=== PATIENT | male | born 1965 | race Hispanic/Latino ===

== ENCOUNTER 2017-10-20 22:50 | Observation (INO) | payer MEDICARE, OTHER ==
[~2017-10-20] VITALS: Ht 165.1 cm; Wt 106.8 kg
[2017-10-20] MEDS ORDERED: PANTOPRAZOLE 40 MG 10ML VIAL IV STA (23:09)
[2017-10-20] MEDS ORDERED: NITROGLYCERIN 0.4 MG SUBL SL PRN (23:15)
[2017-10-20] MEDS ORDERED: ASPIRIN 325 MG TAB PO ONE (23:15)
[2017-10-20] MEDS ORDERED: LORAZEPAM 1 MG TAB PO ONE (23:45)
[2017-10-21] VITALS (10 sets, daily range): BP systolic 115–182; BP diastolic 62–84
[2017-10-21] MEDS ORDERED: MORPHINE SULFATE INJ 4 MG/ML INJ IV STA (00:31)
[2017-10-21] MEDS ORDERED: FAMOTIDINE 20 MG TAB PO SCH (00:45)
[2017-10-21] MEDS ORDERED: PROMETHAZINE 12.5MG/ NACL 0.9% 12.5 MG/50 ML BAG IV PRN (00:45)
[2017-10-21] MEDS ORDERED: MORPHINE SULFATE 2 MG/ML SYR IV PRN (00:45)
[2017-10-21] MEDS ORDERED: SODIUM CHLORIDE FLUSH 10 ML SYR INJ PRN (00:45)
[2017-10-21] MEDS ORDERED: DEXTROSE 50% SYRINGE 50 ML IV PRN ×2 (01:15→14:00)
[2017-10-21] MEDS ORDERED: LASIX40 MG PO (02:01)
[2017-10-21] MEDS ORDERED: MORPHINE SULFAT30 M2 PO (02:01)
[2017-10-21] MEDS ORDERED: PLAVIX75 MG PO (02:01)
[2017-10-21] MEDS ORDERED: PROCARDIA XL30 MG (02:01)
[2017-10-21] MEDS ORDERED: LORAZEPAM1 MG PO (02:01)
[2017-10-21] MEDS ORDERED: METOPROLOL SUCC50 MG PO (02:01)
[2017-10-21] MEDS ORDERED: LORAZEPAM 1 MG TAB PO PRN (02:15)
[2017-10-21] MEDS: NITROGLYCERIN 0.4 MG SUBL SL PRN ×3 (03:17→03:27)
[2017-10-21 05:51] LABS: CREATINE KINASE MB 1.7 ng/mL (0-5.0)
[2017-10-21] MEDS: NIFEDIPINE CR 30 MG TAB PO SCH (09:00)
[2017-10-21] MEDS: FUROSEMIDE 40 MG TAB PO SCH (09:00)
[2017-10-21] MEDS: CLOPIDOGREL BISULFATE 75 MG TAB PO SCH (09:00)
[2017-10-21] MEDS ORDERED: MORPHINE SULFATE 30 MG TAB ER PO SCH (09:00)
[2017-10-21] MEDS: ASPIRIN 81 MG ENTERIC COATED PO SCH (09:00)
[2017-10-21] MEDS: FAMOTIDINE 20 MG TAB PO SCH ×2 (09:00→21:28)
[2017-10-21] MEDS: METOPROLOL SUCCINATE 50 MG TAB XL PO SCH (09:00)
[2017-10-21] MEDS: INSULIN REGULAR, HUMAN 100 UNIT/1 ML 3ML VIAL SQ SCH ×2 (11:16→11:30)
[2017-10-21 13:18] LABS: BASOPHILS % 0.5 % (0.0-1.0); EOSINOPHILS # (AUTO) 0.3 (0.0-0.4); EOSINOPHILS % 3.8 % (0.0-6.0); HEMATOCRIT 33.7 % (38.2-49.6); HEMOGLOBIN 11.2 g/dL (14.0-18.0); LYMPHOCYTES # (AUTO) 1.7 (1.0-3.2); LYMPHOCYTES % 20.1 % (18.0-39.1); MEAN CORPUSCULAR HEMOGLOBIN 28.9 pg (28-32); MEAN CORPUSCULAR HGB CONC 33.2 g/dL (31-35); MEAN CORPUSCULAR VOLUME 87.1 fL (81-99); MONOCYTES # (AUTO) 1.1 (0.2-0.8); MONOCYTES % 13.2 % (4.4-11.3); NEUTROPHILS # (AUTO) 5.1 (2.1-6.9); PLATELET COUNT 196 x10e3/uL (140-360); RED BLOOD COUNT 3.87 x10e6/uL (4.3-5.7); RED CELL DISTRIBUTION WIDTH 14.2 % (11.7-14.4)
[2017-10-21 13:33] LABS: CREATINE KINASE MB 1.6 ng/mL (0-5.0)
[2017-10-21 13:51] LABS: ALBUMIN/GLOBULIN RATIO 0.8 (0.8-2.0); ANION GAP 14.7 mmol/L (8-16); CALCIUM 8.5 mg/dL (8.4-10.2); CREATININE, SERUM 4.43 mg/dL (0.72-1.25); POTASSIUM 3.7 mmol/L (3.5-5.1)
[2017-10-21] MEDS: INSULIN LISPRO 100 UNIT/1 ML 3ML VIAL SQ SCH ×3 (16:30→20:51)
[2017-10-21] MEDS: MORPHINE SULFATE 15MG TAB CR PO SCH (17:00)
--- NOTE | 2017-10-21 18:19 | History and Physical ---
CHIEF COMPLAINT: Atypical chest pain, abnormal EKG, shortness of breath. HPI: This is a 52-year-old male with a past medical history of coronary artery disease, hypertension, diabetes mellitus, possible renal failure. He was in his usual state of health until the patient came to [facility] ER with atypical chest pain. The pain started on the right side and radiated to the left side, right upper quadrant pain also. Mild shortness of breath. No backache. No burning urination. No diarrhea. No constipation. No seizures. No cough. No hematemesis or melena. No abnormal movement. ALLERGIES: NO KNOWN DRUG ALLERGIES. PAST MEDICAL HISTORY 1. Chronic low back pain. 2. Coronary artery disease. 3. Hypertension. 4. Hyperlipidemia. 5. Chronic renal failure. PAST SURGICAL HISTORY 1. History of spinal stimulator. 2. Coronary artery bypass graft. SOCIAL HISTORY: The patient is and lives with his . HABITS: Denies smoking. Denies alcohol use. Denies illicit drug use. FAMILY HISTORY: Father and mother both have coronary artery disease and coronary artery bypass graft. MEDICATIONS: List attached. REVIEW OF SYSTEMS GENERAL: Denies fatigue and weakness. HEENT: No diplopia. No blurring of vision. CARDIOPULMONARY: Had chest pain and shortness of breath. ALIMENTARY SYSTEM: No nausea. No vomiting. No diarrhea. GENITOURINARY: Denies dysuria or hematuria. MUSCULOSKELETAL: No joint pain. Has back pain. NEURO: No focal weakness. No seizure. PHYSICAL EXAMINATION GENERAL: This is a 52-year-old male who is alert and oriented times 3, in no gross distress. VITAL SIGNS: Temperature 96.2, pulse 58, respiratory rate 18, blood pressure 144/78. HEENT: Atraumatic and normocephalic. Pupils are bilaterally equal to light. The extraocular movements are intact. NECK: Supple. No JVD. No carotid bruit. LUNGS: Clear to auscultation and percussion bilaterally. No added sound. HEART: S1 and S2. Regular rate and rhythm. No S3, S4 or murmur. ABDOMEN: Soft. Nontender. No guarding. No rigidity. EXTREMITIES: No pedal edema. Peripheral pulses +1. ALUMINUM HYDROXIDE PROCESS OPERATOR: Grossly nonfocal. EKG: Sinus rhythm with possible premature ventricular contractions, 72 per minute, . CHEST X-RAY: Done at the ER shows normal. LABS: Done in the ER across the street: Cardiac enzymes negative. Sodium 137, potassium 4.1, sugar 312, BUN 49, creatinine 4.8. White count 8.9, hemoglobin 12.9, hematocrit 39.7, platelets 227. ASSESSMENT 1. Atypical chest pain with abnormal electrocardiogram. Previous history of coronary artery disease and coronary artery bypass graft, rule out myocardial infarction. 2. Hypertension. 3. Right upper quadrant abdominal pain, rule out gallstones. 4. Chronic kidney disease, possible diabetic nephropathy. 5. Diabetes mellitus, type 2. PLAN: Admit to telemetry. Cardiology consult with Dr. Lindquist. Pain management consult with Dr. Roblero. V/Q scan to rule out PE. Ultrasound of the abdomen in the morning. Labs in the morning. Labs stat now. Blood sugar checked a.c. and at bedtime with sliding scale. Case discussed with Dr. Lindquist, delivery specialist. Case discussed with the patient. Job#: [id number]
[2017-10-21] MEDS ORDERED: INSULIN DETEMIR 100 UNIT/ML PEN SQ SCH (21:00)
[2017-10-21 21:57] LABS: CREATINE KINASE MB 1.8 ng/mL (0-5.0)
[2017-10-22] VITALS (8 sets, daily range): BP systolic 134–175; BP diastolic 63–78
--- NOTE | 2017-10-22 02:46 | Consultation ---
DATE OF CONSULTATION: October 21, 2017 CARDIOLOGY CONSULTATION NOTE CLINICAL HISTORY: This is a 52-year-old man well known to me from previous evaluations admitted via the emergency room because of recurrent right-sided pleuritic chest pains radiating to the right face. In February of 2014, the patient underwent multivessel coronary artery bypass surgery by Dr. Jeb Ruelas. Following the procedure, the patient suffered from severe left arm pains at the site of previous radial artery harvesting. This required chronic narcotic usage and eventually with the pain stimulator in the spine. He remains addicted to pain medications, but says he takes it only as needed. Since then, he has had multiple hospitalizations for chest pains, also some degree of volume overload. Due to his end-stage renal disease, invasive evaluation was not recommended related to end-stage renal disease, but the patient has not required dialysis. He, therefore, is not a good candidate for invasive evaluation and treatment. He came in the hospital this time because of right-sided pleuritic chest pains radiating to the face. He also had pains in both calves with tenderness. He has some right upper quadrant tenderness, although he has had cholecystectomy. EKG showed nonspecific lateral T-wave inversion, which was present on previous EKG and PVCs. Cardiology consultation requested. PAST MEDICAL HISTORY: Remarkable for hospitalization in July with pulmonary infiltrates, shortness of breath. He has history of hyperlipidemia, nonfunctioning gallbladder, obesity. PAST SURGICAL HISTORY: Bypass surgery, ganglion block, umbilical hernia, cholecystectomy. FAMILY HISTORY: Remarkable for coronary artery disease. PERSONAL / SOCIAL HISTORY: Denies smoking or drinking. ALLERGIES: NONE KNOWN. REVIEW OF SYSTEMS: Negative. PHYSICAL EXAMINATION GENERAL: He is obese, alert, coherent, appears to be comfortable. CARDIAC: Jugular veins are not distended. S1, S2 were regular. There is no appreciable murmur. LUNGS: Clear. ABDOMEN: Soft. Bowel sounds are present. EXTREMITIES: Show no cyanosis, clubbing, edema. IMPRESSIONS 1. Pleuritic right-sided chest pain radiating to the right face, probably not ischemic in nature. 2. Chronic narcotic usage. 3. End-stage renal disease, not requiring dialysis, making it difficult to do any intervention. 4. Coronary artery disease, status post coronary stenting, coronary artery bypass surgery in February 2014. 5. 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 6. Chronic colitis. 7. Diabetes. 8. History of cerebrovascular accident with left-sided weakness and numbness. 9. Hyperlipidemia. 10. Obesity. RECOMMENDATIONS: Symptomatic management. This patient is on dialysis, cardiac catheterization may be considered. Job#: [id number] CQ cc:LATIA VICENTE MD
[2017-10-22 06:28] LABS: PHOSPHORUS 4.8 MG/DL (2.3-4.7)
[2017-10-22 06:51] LABS: ANION GAP 13.5 mmol/L (8-16); CALCIUM 8.7 mg/dL (8.4-10.2); CREATININE, SERUM 4.48 mg/dL (0.72-1.25); POTASSIUM 3.5 mmol/L (3.5-5.1)
[2017-10-22 07:15] LABS: FREE T4 (FREE THYROXINE) 0.98 ng/dL (0.9-1.8); THYROID STIMULATING HORMONE 0.509 uIU/mL (0.350-4.940)
[2017-10-22] MEDS: INSULIN LISPRO 100 UNIT/1 ML 3ML VIAL SQ SCH ×7 (08:00→20:52)
[2017-10-22] MEDS: FAMOTIDINE 20 MG TAB PO SCH ×2 (09:01→21:35)
[2017-10-22] MEDS: NIFEDIPINE CR 30 MG TAB PO SCH (09:01)
[2017-10-22] MEDS: ASPIRIN 81 MG ENTERIC COATED PO SCH (09:01)
[2017-10-22] MEDS: FUROSEMIDE 40 MG TAB PO SCH (09:01)
[2017-10-22] MEDS: MORPHINE SULFATE 15MG TAB CR PO SCH ×2 (09:01→17:12)
[2017-10-22] MEDS: METOPROLOL SUCCINATE 50 MG TAB XL PO SCH (09:02)
--- NOTE | 2017-10-22 09:06 | Consultation ---
DATE OF CONSULTATION: October 22, 2017 RENAL CONSULTATION ADMITTING PHYSICIAN: Dr. Atul Stephens REASON FOR CONSULTATION: End-stage renal disease. HISTORY OF PRESENT ILLNESS: This 52-year-old male, with history of stage-4 chronic kidney disease, diabetes, hypertension, presented to [facility] with chest pain and shortness of breath. The patient is well known to me from the outpatient office. He has been missing his appointments because he has been in and out of the hospital. The patient states he was on his way to [facility] and developed pleuritic-type chest pain associated with shortness of breath. His symptoms worsened, and he presented to the emergency room. The patient was seen by cardiology. Since the patient is not on dialysis, any intervention will be at high risk. REVIEW OF SYSTEMS: As above. All other systems negative. PAST MEDICAL HISTORY 1. Chronic kidney disease, stage 4. 2. Diabetes. 3. Hypertension. 4. Dyslipidemia. 5. Obesity. 6. Chronic pain. PAST SURGICAL HISTORY 1. Umbilical hernia surgery. 2. Cholecystectomy. 3. Bypass surgery. SOCIAL HISTORY: No tobacco. No alcohol. No IV drugs. FAMILY HISTORY: Positive for coronary artery disease. ALLERGIES: No known drug allergies. CURRENT MEDICATIONS: See list. PHYSICAL EXAMINATION VITALS: Blood pressure 141/64, pulse 68, respiratory rate 18, temperature 97. GENERAL: No apparent distress. HEENT: Oropharynx is clear. No scleral icterus. No periorbital edema. NECK: Supple. No elevation in jugular venous pressure. No lymphadenopathy. CHEST: Clear to auscultation anteriorly bilaterally. CARDIOVASCULAR: Regular rhythm. No murmurs, rubs, or gallops. ABDOMEN: Soft. Positive bowel sounds. No tenderness. No rebound. EXTREMITIES: Trace edema. No clubbing. No cyanosis. SKIN: Warm. LABS: Sodium 137, potassium 3.5, chloride 101, CO2 26, BUN 52, creatinine 4.48, glucose 121. Estimated GFR is 14 mL per minute. White count 8.24, hemoglobin 11.2, hematocrit 33.7, platelets 196. ASSESSMENT AND PLAN 1. Stage-5 chronic kidney disease. Patient is relatively asymptomatic. He does have some edema and atypical chest pain. Will continue with Lasix. Await abdominal ultrasound results. Will discuss dialysis further if cardiac catheterization is imperative. 2. Edematous on exam. Continue his Lasix. 3. Electrolytes are acceptable. Potassium 3.5. Patient on cardiac diet. Will follow. 4. Diabetes per primary team. 5. Anemia secondary to chronic kidney disease. Job#: [id number]
[2017-10-22] MEDS: CLOPIDOGREL BISULFATE 75 MG TAB PO SCH (17:12)
[2017-10-22] MEDS ORDERED: INSULIN DETEMIR 100 UNIT/ML PEN SQ SCH (21:00)
[2017-10-23 00:02] VITALS: BP 144/63
[2017-10-23 04:32] LABS: BASOPHILS # (AUTO) 0.1 (0.0-0.1); BASOPHILS % 0.6 % (0.0-1.0); EOSINOPHILS # (AUTO) 0.4 (0.0-0.4); HEMATOCRIT 32.1 % (38.2-49.6); LYMPHOCYTES # (AUTO) 1.4 (1.0-3.2); LYMPHOCYTES % 17.1 % (18.0-39.1); MEAN CORPUSCULAR HEMOGLOBIN 28.8 pg (28-32); MEAN CORPUSCULAR HGB CONC 34.3 g/dL (31-35); MONOCYTES # (AUTO) 1.1 (0.2-0.8); MONOCYTES % 13.7 % (4.4-11.3); NEUTROPHILS # (AUTO) 5.2 (2.1-6.9); NEUTROPHILS % 63.4 % (38.7-80.0); PLATELET COUNT 197 x10e3/uL (140-360); RED BLOOD COUNT 3.82 x10e6/uL (4.3-5.7); RED CELL DISTRIBUTION WIDTH 13.8 % (11.7-14.4)
[2017-10-23 04:57] LABS: ANION GAP 12.7 mmol/L (8-16); CALCIUM 8.6 mg/dL (8.4-10.2); CREATININE, SERUM 4.33 mg/dL (0.72-1.25); PHOSPHORUS 4.3 MG/DL (2.3-4.7); POTASSIUM 3.7 mmol/L (3.5-5.1)
[2017-10-23 05:40] VITALS: BP 155/97
[2017-10-23 07:03] LABS: CREATININE,URINE RANDOM 124.05 mg/dL (63-166)
[2017-10-23 07:22] LABS: TOTAL PROTEIN, URINE 372.4 mg/dL (1-14)
[2017-10-23 07:33] LABS: CLARITY,URINE CLEAR (CLEAR); COLOR,URINE YELLOW (YELLOW); LEUKOCYTE ESTERASE ,URINE NEGATIVE (NEGATIVE); NITRITE,URINE NEGATIVE (NEGATIVE)
[2017-10-23 07:34] LABS: BILIRUBIN,URINE NEGATIVE (NEGATIVE); KETONES,URINE NEGATIVE (NEGATIVE); PROTEIN,URINE DIPSTICK 3+ (NEGATIVE); URINE UROBILINOGEN 0.2 mg/dL (0.2 - 1)
[2017-10-23 07:36] LABS: EPITHELIAL CELLS,URINE FEW /LPF
[2017-10-23 07:37] LABS: BACTERIA,URINE RARE /HPF; RBC,URINE 0-5 /HPF (0-5); WBC,URINE (MAN) 0-5 /HPF (0-5)
[2017-10-23 07:56] VITALS: BP 150/69
[2017-10-23] MEDS: FUROSEMIDE 40 MG TAB PO SCH (09:00)
[2017-10-23] MEDS: ASPIRIN 81 MG ENTERIC COATED PO SCH (09:00)
--- NOTE | 2017-10-23 10:31 | Diagnostic Imaging Report ---
PROCEDURE:ABDOMINAL ULTRASOUND COMPARISON:None. INDICATIONS: Abd pain TECHNIQUE: Transverse and longitudinal images of the upper abdomen were obtained. FINDINGS: Liver: Size: 15.3 cm in the right midclavicular line, normal Appearance: Normal echogenicity, smooth contour Mass: No focal masses Spleen: Size: 8.5 cm in length, normal Echogenicity: Normal Mass: No focal masses Gallbladder: Status post cholecystectomy. Bile Ducts: Intrahepatic Ducts: No dilatation Extrahepatic Ducts: Common bile duct measures 0.4 cm, no dilatation Pancreas: Visualized portions of the neck and proximal body are normal. Right Kidney: Size: 11.2 cm Echogenicity: Normal Collecting System: No hydronephrosis Stone: None Cyst/Mass: None Left Kidney: Size: 12.8 cm Echogenicity: Normal Collecting System: No hydronephrosis Stone: None Cyst/Mass: None Vessels: Aorta: Visualized portions are normal Inferior Vena Cava: Visualized portions and normal Main Portal Vein: 1.1 cm, normal size with hepatopedal flow. Free Fluid: No ascites or pleural effusions IMPRESSION: Status post cholecystectomy. Otherwise unremarkable abdominal ultrasound. Dictated by: AMADOR HUNTER M.D. on 10/23/2017 at 10:35 Electronically approved by: AMADOR HUNTER M.D. on 10/23/2017 at 10:35
--- NOTE | 2017-10-23 10:33 | Discharge Summary ---
He was admitted with atypical chest pain and abdominal pain. ADMITTING IMPRESSION AND DIAGNOSES: 1. Atypical chest pain. 2. Abnormal electrocardiogram. 3. Previous history of coronary artery bypass surgery. 4. Coronary artery disease. 5. Chronic kidney disease. 6. Diabetes mellitus. 7. Renal failure. HOSPITAL COURSE SUMMARY: Patient was admitted with above diagnoses. Cardiology and renal consultation was done. Pain management consult was done, Dr. Roblero. Ultrasound of the abdomen was ordered. V/Q scan was ordered. Patient has pain-seeking behavior also. So, patient will need outpatient workup. Patient might need to be on dialysis in the future. Patient will continue to follow with nephrology service and cardiology service, Dr. Lindquist. Patient will get abdominal ultrasound done today and patient will be discharged home today and will be followed up as outpatient. MARGARITA VICENTE MD Job#: [id number]
[2017-10-23] MEDS: INSULIN LISPRO 100 UNIT/1 ML 3ML VIAL SQ SCH (11:20)
[2017-10-23] MEDS: FAMOTIDINE 20 MG TAB PO SCH (11:21)
[2017-10-23] MEDS: MORPHINE SULFATE 15MG TAB CR PO SCH (11:21)
[2017-10-23] MEDS: CLOPIDOGREL BISULFATE 75 MG TAB PO SCH (11:21)
[2017-10-23] MEDS: NIFEDIPINE CR 30 MG TAB PO SCH (11:22)
[2017-10-23] MEDS: METOPROLOL SUCCINATE 50 MG TAB XL PO SCH (11:23)
== END 2017-10-23 13:38 | disposition home or self-care (01) ==
LOC: FSED 22:50 → ERHOLD 10-21 02:15 → MED/SURG2 10-21 02:57
PROVIDERS: ADMIT Internal Medicine; ATTEND Internal Medicine
DX: R07.89 Other chest pain (principal); N28.9 Disorder of kidney and ureter, unspecified; I25.10 Atherosclerotic heart disease of native coronary artery without angina pectoris; I50.9 Heart failure, unspecified; E78.5 Hyperlipidemia, unspecified; Z86.73 Personal history of transient ischemic attack (TIA), and cerebral infarction without residual deficits; F41.9 Anxiety disorder, unspecified; Z95.1 Presence of aortocoronary bypass graft; E11.65 Type 2 diabetes mellitus with hyperglycemia; Z91.018 Allergy to other foods; E11.22 Type 2 diabetes mellitus with diabetic chronic kidney disease; I13.2 Hypertensive heart and chronic kidney disease with heart failure and with stage 5 chronic kidney disease, or end stage renal disease; N18.5 Chronic kidney disease, stage 5; D63.1 Anemia in chronic kidney disease; E66.9 Obesity, unspecified; I69.354 Hemiplegia and hemiparesis following cerebral infarction affecting left non-dominant side; K52.89 Other specified noninfective gastroenteritis and colitis; G89.4 Chronic pain syndrome
CPT/HCPCS: 36415 ×3; 71046; 76700; 80048 ×2; 80053; 80061; 81001; 81003; 82550; 82553; 82570; 82948 ×3; 83036; 83735; 83880; 84100 ×2; 84156; 84439; 84443; 84484; 85025 ×2; 93005; 99284; G0378 ×3; J2270 ×2